=== PATIENT | male | born 1985 | race Caucasian/White ===

== ENCOUNTER 2019-05-29 11:28 | Emergency (ER) | payer MEDICAID ==
[~2019-05-29] VITALS: Ht 160 cm; Wt 87.7 kg
[2019-05-29 11:31] VITALS: BP 140/91
--- NOTE | 2019-05-29 11:41 | NUR ---
PT BIB SELF C/O HEADACHE SINCE THIS MORNING. PT REPORTS SHARP/THROBING HEADACHE ON FRONT LT SIDE OF HEAD THAT INCREASES WITH LIFTING OBJECTS. PT TX WITH MOTRIN 800MG WITH SOME RELIEF. PT AAOX4, COOPERATIVE, SPEECH CLEAR, MEMORY INTACT, PERRLA, GAIT STEADY. VSS. ER TO SEE PT.
--- NOTE | 2019-05-29 12:42 | NUR ---
CALLED COMMUNITY EDUCATOR FOR ER . SPOKE WITH COMMUNITY EDUCATOR BRIANNA, # [phone]
--- NOTE | 2019-05-29 13:36 | NUR ---
PT AT CT AT THIS TIME
--- NOTE | 2019-05-29 13:42 | NUR ---
PT RETURNED FROM CT, DENIES PAIN AT THIS TIME, VSS.
[2019-05-29 14:32] VITALS: BP 126/73
--- NOTE | 2019-05-29 14:32 | NUR ---
Patient discharged with v/s stable. Written and verbal after care instructions given and explained. Patient verbalized understanding. Ambulatory with steady gait. All questions addressed prior to discharge. Advised to follow up with PMD.
== END 2019-05-29 14:32 | disposition home or self-care (01) ==
LOC: MED 11:28
DX: R51 Headache (principal); H53.149 Visual discomfort, unspecified; R68.83 Chills (without fever)
CPT/HCPCS: 70450; 99284